=== PATIENT | male | born 1945 | race Caucasian/White ===

== ENCOUNTER 2017-05-09 11:18 | Emergency (ER) | payer MEDICARE, MEDICAID ==
[~2017-05-09] VITALS: Ht 154.9 cm; Wt 72.6 kg
--- NOTE | 2017-05-09 11:52 | Diagnostic Imaging Report ---
Indication: Head trauma, pain Technique: Continuous helical CT scanning of the head was performed without intravenous contrast material. Axial and coronal 5 mm sections were generated. Dose: Total Dose Length Product - DLP [address] Dose Index - CTDIvol(s) 70.38 mGy. Automated exposure control was utilized for dose reduction. Comparison: None Findings: Examination demonstrates evidence for previous left frontal craniotomy. There is prominence of cortical sulci and the ventricular system. Periventricular low density is present. Prominence of cerebellar folia is also noted. Vascular calcifications also present. There is no shift of midline structures. No abnormal extra-axial fluid collections are noted. There is no evidence of intracerebral bleeding. No other abnormal high or low density areas are noted within the brain. Impression: Previous left frontal craniotomy. Atrophy. 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 Atherosclerotic change. No acute abnormality. The CT scanner at [facility] is accredited by the [employer] and the scans are performed using protocols designed to limit radiation exposure to as low as reasonably achievable to attain images of sufficient resolution adequate for diagnostic evaluation.
[2017-05-09] MEDS ORDERED: LEVOTHYROXINE25 MCG ORAL (12:04)
[2017-05-09] MEDS ORDERED: FLORINEF0.1 MG ORAL (12:04)
[2017-05-09] MEDS ORDERED: LEVETIRACE500 MG/5 M IV (12:04)
[2017-05-09] MEDS ORDERED: HEPARIN SO5000 UNIT2 SUBQ (12:04)
[2017-05-09] MEDS ORDERED: REGLAN5 MG ORAL (12:04)
[2017-05-09] MEDS ORDERED: ALBUTEROL2.5 MG/3 M INH (12:04)
[2017-05-09] MEDS ORDERED: BISACODYL5 MG ORAL (12:04)
[2017-05-09] MEDS ORDERED: TYLENOL650 MG/20. ORAL (12:04)
[2017-05-09] MEDS ORDERED: LEVETIRACETAM500 MG ORAL (12:06)
--- NOTE | 2017-05-09 12:34 | Emergency Room Report ---
History of Present Illness General Chief Complaint: Multiple Trauma/Fall Source: Patient Present Illness HPI 71 y/o male BIB fire department for ALOC. This patient has a history of seizure and was intubated and monitored in the ICU for lactic acidosis and later discharged on April 27 to a [facility] facility where the patient eloped today and was later found by fire and brought to us for evaluation. The patient is alert and will communicate however the patient is not orientated and per medical records review from [facility] at [place] by Dr. Orr the patient was alert but not oriented at that time. Patient has a history of seizure disorder, metabolic encephalopathy, protein calorie malnutrition, and acute on chronic kidney injury. While the patient was in the ICU, the patient was treated for meningitis however, CSF cultures revealed no growth of bacteria. Patient takes Keppra 1000 mg twice a day and Synthroid with an unknown dosage. The patient was later evaluated by Atilio MONTANEZ in conjunction with Dr. Chon Mcmahon where the patient was diagnosed with dementia and the patient was discontinued on Seroquel and placed on Remeron 50 mg at bedtime. Per Mr. Reis, the patient has poor insight regarding his current medical and psychiatric condition and does not have the ability to make decisions regarding his care. It is his opinion that the patient may be experiencing confusion due to his history of encephalopathy, malnutrition, seizure, history of craniotomy, or recent infection. The patient's medication list as of 05/01/17 includes Tylenol 325, albuterol nebulize solution, fludrocortisone acetate tablet 0.1 mg 2 tabs by mouth 1 times a day for encephalopathy, Heparin Sodium 5000 units Q12 prophylactically to prevent DVT, Levetiracetam tab 1000mg BID, levothyroxine 25mcg 1 tab QD and Reglan 5mg 1 tab Q6H PRN for nausea. Allergies: Coded Allergies: UNABLE TO ASSESS (Unverified , 05/09/17) Patient History Limited by: language barrier, medical condition Past Medical History: see triage record, old chart reviewed Past Surgical History: unable to obtain Pertinent Family History: unable to obtain Reviewed Nursing Documentation: PMH: Agreed, PSxH: Agreed Nursing Documentation-PMH Past Medical History: No Stated History Review of Systems All Other Systems: negative except mentioned in HPI Physical Exam Vital Signs Date Time Temp Pulse Resp B/P (MAP) Pulse Ox O2 Delivery O2 Flow Rate FiO2 05/09/17 11:01 97.2 98 18 154/76 98 Room Air Sp02 EP Interpretation: reviewed General Appearance: no apparent distress, alert, GCS 15, non-toxic Head: normocephalic, other - 4cm laceration to posterior scalp Eyes: bilateral eye normal inspection, bilateral eye PERRL ENT: hearing grossly normal, normal pharynx, no angioedema, normal voice Neck: full range of motion, no bony tend, supple/symm/no masses Respiratory: chest non-tender, lungs clear, normal breath sounds, speaking full sentences Cardiovascular #1: regular rate, rhythm, no edema Gastrointestinal: non tender, soft Musculoskeletal: back normal, gait/station normal, normal range of motion, non- tender Neurologic: alert, responsive, traffic rate analyst III-XII nml as tested, motor strength/tone normal, other - A&O x 0, unable to assess pronator drift due to mental condition Psychiatric: mood/affect normal Skin: normal color, no rash, warm/dry, well hydrated, abrasions - left forarm, laceration - 4cm posterior scalp Procedures Laceration/Wound Repair Laceration/Wound Repair : Consent: Emergent Wound Location: head Wound's Depth, Shape: into muscle, linear Wound Length (cm): 4 Wound Explored: clean Betadine Prep?: Yes Wound Debrided: minimal Wound Repaired With: eric Number of Sutures: 6 Layer Closure?: No Medical Decision Making PA Attestation Dr. Bell is my supervising physician with whom patient management has been discussed with. Diagnostic Impression: Primary Impression: Laceration of scalp Qualified Codes: S01.01XA - Laceration without foreign body of scalp, initial encounter Additional Impression: Head injury without concussion or intracranial hemorrhage Qualified Codes: S09.90XA - Unspecified injury of head, initial encounter ER Course Pt. presents to the ED c/o head injury Ddx considered but are not limited to CVA, intracranial hemorrhage, concussion, skull fracture, spinal fracture Vital signs: are WNL, pt. is afebrile H&PE are most consistent with head injury ORDERS: CT Head w/o contrast, CXR and EKG negative. ED INTERVENTIONS: Eric for lac repair and wound care. DISCHARGE: At this time pt. is stable for d/c to home. Will provide printed patient care instructions, and any necessary prescriptions. Care plan and follow up instructions have been discussed with the patient prior to discharge. Last Vital Signs Date Time Temp Pulse Resp B/P (MAP) Pulse Ox O2 Delivery O2 Flow Rate FiO2 05/09/17 11:01 97.2 98 18 154/76 98 Room Air Disposition: HOME, SELF-CARE Condition: Stable Scripts Cephalexin* (KEFLEX*) 500 Mg Capsule 500 MG ORAL EVERY 12 HOURS, #10 CAP 0 Refills Prov: CHERYL NIEVES 05/09/17 Referrals: MARQUES ORR (PCP) Additional Instructions: Keep wound clean and dry. Avoid sun exposure to minimize scarring. Patient advised to return for recheck in 3-5 days and for staple removal in 5-7 days. Patient advised that they can take a shower or bath, but be sure to pat the area dry with a towel afterward. Patient should come back sooner if they experience any red areas that get bigger, more swollen, have pus draining from wound, or if the site becomes more painful. Advised patient to go to the ER immediately if you experience a headache that is sudden and becomes severe within a few seconds or minutes, or that could be described as "the worst headache of your life", or if headache is severe and occurs with a fever or stiff neck, occurs with a seizure, personality changes, confusion, or passing out, begins quickly after strenuous exercise or minor injury, or if headache is new and occurs with weakness, numbness, or difficulty seeing. CHERYL NIEVES May 09, 2017 12:34
[2017-05-09] MEDS ORDERED: CEPHALEXIN500 MG ORAL (12:57)
[2017-05-09 14:10] VITALS: BP 137/74
--- NOTE | 2017-05-10 09:44 | Diagnostic Imaging Report ---
Indication: Pain Technique: XRAY Chest 1v Comparison: None. Findings: The cardiomediastinal silhouette is normal. The lungs are clear. There is no evidence of pleural fluid. The bones are unremarkable. Impression: Normal chest.
--- NOTE | 2017-05-20 17:37 | Cardiology Report ---
APPROVED REPORT EKG Measurement Heart [id number] Normal sinus rhythm Normal ECG
== END 2017-05-09 14:15 | disposition home or self-care (01) ==
LOC: EDBD 11:18 → EMR 11:41
DX: S01.01XA Laceration without foreign body of scalp, initial encounter (principal); S09.8XXA Other specified injuries of head, initial encounter; W19.XXXA Unspecified fall, initial encounter; Y92.410 Unspecified street and highway as the place of occurrence of the external cause
CPT/HCPCS: 70450; 71045; 93005; 99284